=== PATIENT | female | born 1965 | race Caucasian/White ===

== ENCOUNTER 2017-12-12 02:37 | Emergency (ER) | payer OTHER ==
[~2017-12-12] VITALS: Ht 157.5 cm; Wt 68.0 kg
[2017-12-12 02:40] VITALS: BP 114/76
[2017-12-12] MEDS ORDERED: SIMV10TA3 PO (02:49)
== END 2017-12-12 04:28 | disposition home or self-care (01) ==
LOC: ED 04:20
DX: R05 Cough (principal); R09.81 Nasal congestion
CPT/HCPCS: 71046; 99284